=== PATIENT | male | born 1990 | race African-American/Black ===

== ENCOUNTER 2021-01-31 13:20 | Emergency (ER) | payer MEDICAID ==
[~2021-01-31] VITALS: Ht 175.3 cm; Wt 55.0 kg
[~2021-01-31 13:20] MED LIST: DEPER5 PO
[2021-01-31 18:26] VITALS: BP 132/73
== END 2021-01-31 18:28 | disposition home or self-care (01) ==
LOC: ER 13:20
DX: U07.1 COVID-19 (principal); Z71.89 Other specified counseling; G40.909 Epilepsy, unspecified, not intractable, without status epilepticus; Z88.8 Allergy status to other drugs, medicaments and biological substances
CPT/HCPCS: 99281

== ENCOUNTER 2025-05-25 16:16 | Emergency (ER) | payer MEDICAID, OTHER ==
[~2025-05-25] VITALS: Ht 175.3 cm; Wt 55.0 kg
[2025-05-25 16:21] VITALS: TEMP 98.5; O2SAT 100
[2025-05-25] MEDS ORDERED: CYCL5TAB3 MT (16:37)
[2025-05-25] MEDS ORDERED: IBUP-1455 MT (16:37)
[2025-05-25] MEDS: KETOROLAC 30MG/ML VIAL IM ONE (16:52)
[2025-05-25 17:17] VITALS: BP 99/63; PULSE 87; RESP 16; O2SAT 99
== END 2025-05-25 17:18 | disposition home or self-care (01) ==
LOC: ER 16:16
DX: M25.552 Pain in left hip (principal)
CPT/HCPCS: 99283; 96372; J1885